=== PATIENT | female | born 1960 | race Caucasian/White ===

== ENCOUNTER → 2017-01-23 | Outpatient (CLI) | payer MEDICAID ==
[~2017-01-23] MED LIST: BACTRIM DS 8001 TA1 PO; NKHM; PREDNICOT20 MG PO
== END | disposition home or self-care (01) ==
LOC: RESCLI 04:13
DX: G90.50 Complex regional pain syndrome I, unspecified (principal); E66.3 Overweight; R03.0 Elevated blood-pressure reading, without diagnosis of hypertension; Z72.0 Tobacco use; Z91.041 Radiographic dye allergy status

== ENCOUNTER → 2017-03-20 | Outpatient (CLI) | payer OTHER | END | disposition home or self-care (01) | LOC: RESCLI 03:15 | DX: F32.9 Major depressive disorder, single episode, unspecified (principal); G90.50 Complex regional pain syndrome I, unspecified; E66.3 Overweight; F17.200 Nicotine dependence, unspecified, uncomplicated ==

== ENCOUNTER → 2017-04-17 | Outpatient (CLI) | payer OTHER | END | disposition home or self-care (01) | LOC: RESCLI 04:56 | DX: G90.50 Complex regional pain syndrome I, unspecified (principal); E66.3 Overweight; F32.9 Major depressive disorder, single episode, unspecified; Z72.0 Tobacco use ==

== ENCOUNTER 2017-08-17 16:21 | Emergency (ER) | payer OTHER ==
[~2017-08-17] VITALS: Wt 70.3 kg
[2017-08-17] MEDS ORDERED: CEPHALEXIN500 M1 PO (19:10)
== END 2017-08-17 19:17 | disposition home or self-care (01) ==
LOC: ED 16:21
DX: L03.116 Cellulitis of left lower limb (principal); F17.200 Nicotine dependence, unspecified, uncomplicated; Z88.5 Allergy status to narcotic agent; Z90.710 Acquired absence of both cervix and uterus

== ENCOUNTER 2018-02-01 10:10 | Emergency (ER) | payer OTHER ==
[~2018-02-01] VITALS: Ht 157.4 cm; Wt 69.4 kg
[~2018-02-01 10:10] MED LIST changes: +CEPHALEXIN500 M1 PO
[2018-02-01 10:24] LABS: BASO # 0.1 10*3/uL (0.0-0.1); BASO % 0.4 % (0.0-1.0); EOS # 0.1 10*3/uL (0.0-0.4); EOS % 0.5 % (1.0-4.0); HEMATOCRIT 46.9 % (37.0-47.0); HEMOGLOBIN 15.8 g/dl (12.0-16.0); LYMPH # 2.7 10*3/uL (1.3-4.4); LYMPH % 19.7 % (27.0-41.0); MEAN CELL VOLUME 90.4 fl (81.0-99.0); MEAN CORPUSCULAR HGB 30.4 pg (27.0-31.0); MEAN CORPUSCULAR HGB CONC 33.7 g/dl (33.0-37.0); MONO # 0.9 10*3/uL (0.1-1.0); MONO % 6.3 % (3.0-9.0); NEUT % 72.6 % (47.0-73.0); PLATELET COUNT AUTOMATED 284 10*3/uL (130-400); RED BLOOD COUNT 5.19 10*6/uL (4.10-5.10); RED CELL DISTRI WIDTH 13.4 % (0-14.5); WHITE BLOOD COUNT 13.8 10*3/uL (4.8-10.8)
[2018-02-01 10:43] LABS: ALBUMIN 3.6 gm/dl (3.1-4.5); ALKALINE PHOSPHATASE 106 U/L (45-117); BUN 9 mg/dl (7-24); CHLORIDE 109 mmol/L (98-107); CREATININE 0.81 mg/dL (0.55-1.02); LIPASE 87 U/L (73-393); SGOT/AST 35 IU/L (3-35); SGPT/ALT 26 U/L (12-78); SODIUM 139 mmol/L (136-145); TOTAL PROTEIN 7.5 gm/dL (6.4-8.2)
[2018-02-01 10:44] LABS: POTASSIUM 4.8 mmol/L (3.5-5.1)
[2018-02-01 11:05] LABS: BILIRUBIN NEGATIVE (NEGATIVE); BLOOD 3+ (NEGATIVE); CLARITY SL CLOUDY (CLEAR); COLOR YELLOW (YELLOW); GLUCOSE NEGATIVE (NEGATIVE); KETONE NEGATIVE (NEGATIVE); LEUKO ESTERASE TRACE (NEGATIVE); NITRITE NEGATIVE (NEGATIVE); PH 6.5 (5.0-9.0); SPECIFIC GRAVITY 1.015 (1.005-1.030); UROBILINOGEN 0.2 E.U./dl (0.2-1.0)
[2018-02-01] MEDS ORDERED: SEROQUEL50 MG PO (11:10)
[2018-02-01 11:16] LABS: BACTERIA 3+; CALCIUM OXALATE CRYSTALS 1+; EPITHELIAL CELLS 25-30; RBC 51-100 rbc/hpf (0-2)
[2018-02-01] MEDS ORDERED: SEPTDS PO (11:28)
[2018-02-01] MEDS ORDERED: PERCOCET 5-3251 EACH PO (11:28)
[2018-02-01] MEDS ORDERED: ZOFRAN4 MG PO (11:28)
== END 2018-02-01 11:37 | disposition home or self-care (01) ==
LOC: ED 10:10
PROVIDERS: Nurse Practitioner Family
DX: N13.2 Hydronephrosis with renal and ureteral calculous obstruction (principal); Z88.6 Allergy status to analgesic agent

== ENCOUNTER 2018-02-06 20:27 | Emergency (ER) | payer OTHER ==
[~2018-02-06] VITALS: Ht 157.4 cm; Wt 69.4 kg
[~2018-02-06 20:27] MED LIST changes: +PERCOCET 5-3251 EACH PO; +SEPTDS PO; +SEROQUEL50 MG PO; +ZOFRAN4 MG PO
[2018-02-06 21:23] LABS: BASO # 0.1 10*3/uL (0.0-0.1); BASO % 0.5 % (0.0-1.0); EOS # 0.1 10*3/uL (0.0-0.4); EOS % 1.1 % (1.0-4.0); HEMATOCRIT 44.4 % (37.0-47.0); HEMOGLOBIN 14.9 g/dl (12.0-16.0); LYMPH # 2.4 10*3/uL (1.3-4.4); LYMPH % 24.6 % (27.0-41.0); MEAN CORPUSCULAR HGB 30.5 pg (27.0-31.0); MEAN CORPUSCULAR HGB CONC 33.6 g/dl (33.0-37.0); MEAN PLATELET VOLUME 10.5 fl (9.6-12.3); MONO # 0.7 10*3/uL (0.1-1.0); MONO % 7.1 % (3.0-9.0); NEUT # 6.5 10*3/uL (2.3-7.9); NEUT % 66.4 % (47.0-73.0); PLATELET COUNT AUTOMATED 249 10*3/uL (130-400); RED BLOOD COUNT 4.88 10*6/uL (4.10-5.10); RED CELL DISTRI WIDTH 13.2 % (0-14.5); WHITE BLOOD COUNT 9.8 10*3/uL (4.8-10.8)
[2018-02-06 21:28] LABS: BILIRUBIN NEGATIVE (NEGATIVE); BLOOD 3+ (NEGATIVE); CLARITY CLEAR (CLEAR); COLOR YELLOW (YELLOW); GLUCOSE NEGATIVE (NEGATIVE); KETONE NEGATIVE (NEGATIVE); LEUKO ESTERASE NEGATIVE (NEGATIVE); NITRITE NEGATIVE (NEGATIVE); SPECIFIC GRAVITY <= 1.005 (1.005-1.030); UROBILINOGEN 0.2 E.U./dl (0.2-1.0)
[2018-02-06 21:41] LABS: ALBUMIN 3.8 gm/dl (3.1-4.5); ALKALINE PHOSPHATASE 98 U/L (45-117); BUN 16 mg/dl (7-24); CHLORIDE 106 mmol/L (98-107); CREATININE 1.39 mg/dL (0.55-1.02); LIPASE 154 U/L (73-393); POTASSIUM 4.2 mmol/L (3.5-5.1); SGOT/AST 13 IU/L (3-35); SGPT/ALT 22 U/L (12-78); SODIUM 136 mmol/L (136-145); TOTAL PROTEIN 7.4 gm/dL (6.4-8.2)
[2018-02-06 21:44] LABS: WBC 0-2 wbc/hpf (0-5)
[2018-02-07] MEDS ORDERED: PREDNISONE20 M1 PO (00:13)
[2018-02-07] MEDS ORDERED: KEFLEX500 M1 PO (00:13)
[2018-02-07] MEDS ORDERED: NORCO 5-325 TA1 EACH PO (00:13)
[2018-02-07] MEDS ORDERED: FLOMAX0.4 MG PO (00:13)
== END 2018-02-07 00:49 | disposition home or self-care (01) ==
LOC: ED 20:27
PROVIDERS: Emergency Medicine Emergency Medical Services
DX: N13.2 Hydronephrosis with renal and ureteral calculous obstruction (principal); Z88.6 Allergy status to analgesic agent

== ENCOUNTER 2018-07-13 12:02 | Emergency (ER) | payer OTHER ==
[~2018-07-13] VITALS: Ht 157.4 cm; Wt 68.0 kg
[~2018-07-13 12:02] MED LIST changes: +FLOMAX0.4 MG PO; +KEFLEX500 M1 PO; +NORCO 5-325 TA1 EACH PO; +PREDNISONE20 M1 PO
== END 2018-07-13 14:22 | disposition home or self-care (01) ==
LOC: ED 12:02
DX: M79.605 Pain in left leg (principal); G89.29 Other chronic pain; F17.200 Nicotine dependence, unspecified, uncomplicated; Z88.5 Allergy status to narcotic agent; Z91.041 Radiographic dye allergy status; Z79.899 Other long term (current) drug therapy; Z87.442 Personal history of urinary calculi; Z90.710 Acquired absence of both cervix and uterus

== ENCOUNTER 2020-08-30 11:34 | Emergency (ER) | payer OTHER ==
[~2020-08-30] VITALS: Ht 157.4 cm; Wt 70.8 kg
[~2020-08-30 11:34] MED LIST changes: +TAMIFLU 75MG CA75 MG PO
[2020-08-30] MEDS ORDERED: PREDNISONE50 MG PO (14:59)
== END 2020-08-30 15:18 | disposition home or self-care (01) ==
LOC: ED 11:34
DX: S66.812A Strain of other specified muscles, fascia and tendons at wrist and hand level, left hand, initial encounter (principal); Z88.5 Allergy status to narcotic agent; Z91.041 Radiographic dye allergy status; Z79.899 Other long term (current) drug therapy; Z90.710 Acquired absence of both cervix and uterus; Z98.51 Tubal ligation status; Z98.890 Other specified postprocedural states; X58.XXXA Exposure to other specified factors, initial encounter; Y93.89 Activity, other specified; Y92.89 Other specified places as the place of occurrence of the external cause; Y99.8 Other external cause status

== ENCOUNTER → 2021-02-21 | Outpatient (CLI) | payer OTHER ==
[~2021-02-21] MED LIST changes: +PREDNISONE50 MG PO
== END | disposition home or self-care (01) ==
LOC: RAD 12:28
PROVIDERS: ATTEND Internal Medicine Nephrology
DX: M51.37 Other intervertebral disc degeneration, lumbosacral region (principal); M25.78 Osteophyte, vertebrae

== ENCOUNTER 2021-02-24 17:31 | Emergency (ER) | payer OTHER ==
[~2021-02-24] VITALS: Ht 157.4 cm; Wt 72.6 kg
[2021-02-24 19:48] LABS: BILIRUBIN Negative (Negative); BLOOD Negative (Negative); CLARITY Clear (Clear); COLOR Yellow (Yellow); GLUCOSE Negative (Negative); KETONE Negative (Negative); LEUKO ESTERASE Negative (Negative); NITRITE Negative (Negative); UROBILINOGEN 0.2 E.U./dl (0.0-1.0)
[2021-02-24 20:00] LABS: BACTERIA 1+; RBC 0-2 rbc/hpf (0-2)
== END 2021-02-24 21:20 | disposition left against medical advice (07) ==
LOC: ED 17:31
PROVIDERS: Emergency Medicine
DX: M54.5 Low back pain (principal); R30.0 Dysuria; Z88.6 Allergy status to analgesic agent

== ENCOUNTER → 2021-05-25 | Outpatient (CLI) | payer OTHER | END | disposition home or self-care (01) | LOC: US 15:00 | PROVIDERS: ATTEND Internal Medicine Nephrology | DX: M79.662 Pain in left lower leg (principal); R60.0 Localized edema ==

== ENCOUNTER 2022-01-16 17:28 | Emergency (ER) | payer OTHER ==
[~2022-01-16] VITALS: Ht 157.4 cm; Wt 72.1 kg
[2022-01-17 01:12] LABS: BASO # 0.1 10*3/uL (0.0-0.1); BASO % 0.5 % (0.0-1.0); EOS # 0.1 10*3/uL (0.0-0.4); EOS % 0.5 % (1.0-4.0); LYMPH # 1.9 10*3/uL (1.3-4.4); LYMPH % 19.3 % (27.0-41.0); MEAN CELL VOLUME 91.9 fl (81.0-99.0); MEAN CORPUSCULAR HGB 29.9 pg (27.0-31.0); MEAN CORPUSCULAR HGB CONC 32.5 g/dl (33.0-37.0); MONO # 0.8 10*3/uL (0.1-1.0); MONO % 7.9 % (3.0-9.0); NEUT # 6.9 10*3/uL (2.3-7.9); NEUT % 71.5 % (47.0-73.0); PLATELET COUNT AUTOMATED 250 10*3/uL (130-400); RED BLOOD COUNT 5.55 10*6/uL (4.10-5.10); RED CELL DISTRI WIDTH 13.1 % (0-14.5); WHITE BLOOD COUNT 9.7 10*3/uL (4.8-10.8)
[2022-01-17 01:28] LABS: ALKALINE PHOSPHATASE 126 U/L (45-117); BUN 10 mg/dl (7-24); CHLORIDE 109 mmol/L (98-107); CREATININE 0.61 mg/dL (0.55-1.02); LIPASE 77 U/L (73-393); POTASSIUM 3.8 mmol/L (3.5-5.1); SGOT/AST 15 IU/L (3-35); SGPT/ALT 24 U/L (12-78); SODIUM 139 mmol/L (136-145)
[2022-01-17 01:55] LABS: BILIRUBIN Negative (Negative); BLOOD Negative (Negative); CLARITY Cloudy (Clear); COLOR Yellow (Yellow); GLUCOSE Negative (Negative); KETONE Trace (Negative); LEUKO ESTERASE Trace (Negative); NITRITE Negative (Negative); SPECIFIC GRAVITY 1.025 (1.001-1.030)
[2022-01-17 02:01] LABS: EPITHELIAL CELLS 21-30
[2022-01-17 02:02] LABS: BACTERIA TRACE
[2022-01-17] MEDS ORDERED: PROTONIX40 MG PO (03:27)
== END 2022-01-17 03:30 | disposition home or self-care (01) ==
LOC: ED 17:28
PROVIDERS: Emergency Medicine
DX: K29.70 Gastritis, unspecified, without bleeding (principal); Z88.8 Allergy status to other drugs, medicaments and biological substances; Z90.89 Acquired absence of other organs; Z98.51 Tubal ligation status; Z90.710 Acquired absence of both cervix and uterus

== ENCOUNTER → 2022-02-16 | Outpatient (CLI) | payer OTHER ==
[~2022-02-16] MED LIST changes: +PROTONIX40 MG PO
== END | disposition home or self-care (01) ==
LOC: MAMMO 07:30
PROVIDERS: ATTEND Internal Medicine Nephrology
DX: Z12.31 Encounter for screening mammogram for malignant neoplasm of breast (principal)

== ENCOUNTER 2023-03-19 22:43 | Emergency (ER) | payer OTHER ==
[~2023-03-19] VITALS: Ht 157.4 cm; Wt 75.3 kg
[2023-03-19] MEDS ORDERED: CYMBALTA60 MG PO (22:52)
[2023-03-19] MEDS ORDERED: LEVOTHYROXINE100 MC2 PO (22:53)
[2023-03-19 23:12] LABS: BASO % 0.2 % (0.0-1.0); HEMATOCRIT 49.8 % (37.0-47.0); LYMPH # 0.9 10*3/uL (1.3-4.4); LYMPH % 7.8 % (27.0-41.0); MEAN CORPUSCULAR HGB 28.8 pg (27.0-31.0); MEAN CORPUSCULAR HGB CONC 32.7 g/dl (33.0-37.0); MEAN PLATELET VOLUME 10.8 fl (9.6-12.3); MONO # 0.4 10*3/uL (0.1-1.0); MONO % 3.7 % (3.0-9.0); NEUT # 10.2 10*3/uL (2.3-7.9); PLATELET COUNT AUTOMATED 313 10*3/uL (130-400); RED BLOOD COUNT 5.66 10*6/uL (4.10-5.10); RED CELL DISTRI WIDTH 13.1 % (0-14.5); WHITE BLOOD COUNT 11.6 10*3/uL (4.8-10.8)
[2023-03-19 23:26] LABS: ACT PARTIAL THROMBO TIME 27.4 SECONDS (20.0-32.1)
[2023-03-19 23:34] LABS: ALKALINE PHOSPHATASE 143 U/L (46-116); BUN 13 mg/dl (9-23); CHLORIDE 105 mmol/L (98-107); LIPASE 40 U/L (12-53); POTASSIUM 3.9 mmol/L (3.4-5.1); SGPT/ALT 84 U/L (10-49); TOTAL PROTEIN 7.6 gm/dL (6.0-8.0)
[2023-03-19 23:44] LABS: BILIRUBIN Negative (Negative); BLOOD Negative (Negative); CLARITY Clear (Clear); COLOR Yellow (Yellow); GLUCOSE Negative (Negative); KETONE Negative (Negative); LEUKO ESTERASE Negative (Negative); NITRITE Negative (Negative); PH 7.5 (4.5-8.0)
[2023-03-19 23:50] LABS: EPITHELIAL CELLS 16-20
[2023-03-19 23:51] LABS: BACTERIA TRACE; RBC 0-2 rbc/hpf (0-2); WBC 0-2 wbc/hpf (0-5)
[2023-03-20] MEDS ORDERED: FLOMAX0.4 MG PO (00:44)
== END 2023-03-20 00:47 | disposition home or self-care (01) ==
LOC: ED 22:43
PROVIDERS: Internal Medicine
DX: N20.0 Calculus of kidney (principal); Z88.5 Allergy status to narcotic agent; Z91.041 Radiographic dye allergy status; Z90.710 Acquired absence of both cervix and uterus; Z90.89 Acquired absence of other organs; Z98.51 Tubal ligation status; Z98.890 Other specified postprocedural states; Z90.49 Acquired absence of other specified parts of digestive tract; F17.200 Nicotine dependence, unspecified, uncomplicated